=== PATIENT | male | born 1950 | race Caucasian/White ===

== ENCOUNTER 2018-08-02 07:58 | Day surgery (SDC) | payer OTHER ==
[~2018-08-02] VITALS: Ht 177.8 cm; Wt 101.5 kg
[2018-08-02] MEDS ORDERED: ASPI81CH PO (08:27)
[2018-08-02] MEDS ORDERED: CETI5 PO (08:27)
[2018-08-02] MEDS ORDERED: IBUP400 PO (08:28)
[2018-08-02] MEDS ORDERED: IRON150C PO (08:28)
--- NOTE | 2018-08-02 08:54 | NUR ---
08/02/18 0875 Vesta Matthews EDUCATED PT AND , ANSWERED QUESTIONS. TAUGHT PT INCENTIVE SPIROMETER, PT DEMONSTRATED TWICE. BED IN LOWEST POSITION, CALL LIGHT IN REACH.
--- NOTE | 2018-08-02 13:13 | NUR ---
08/02/18 1313 Reddy Hernandez PATIENT INTO SDU RECLINERELLY, TOLERATING PO FLUIDS WELL, DENIES PAIN AT THIS TIME. PATIENT REPORTS NAUSEA, ORSC.SNEHA GAVE IV MEDICATION FOR NAUSEA PER MD ORDERS, SEE DOSAGE AND TIME IN VITALS. NAUSEA HAS DECREASED PER PATIENT. GAVE REPORT TO ORSC.C AND SHE TOOK OVER PATIENT CARE @ [id number]
== END 2018-08-02 13:37 | disposition home or self-care (01) ==
LOC: ORSCSDS 07:58
PROVIDERS: Orthopaedic Surgery
PROC: 0LS24ZZ Reposition Left Shoulder Tendon, Percutaneous Endoscopic Approach (ICD-10-PCS; principal; 2018-08-02 09:30)
PROC: 0RNK4ZZ Release Left Shoulder Joint, Percutaneous Endoscopic Approach (ICD-10-PCS; principal; 2018-08-02 09:30)
PROC: 0LQ24ZZ Repair Left Shoulder Tendon, Percutaneous Endoscopic Approach (ICD-10-PCS; principal; 2018-08-02 09:30)
DX: M75.122 Complete rotator cuff tear or rupture of left shoulder, not specified as traumatic (principal); M75.22 Bicipital tendinitis, left shoulder; G47.33 Obstructive sleep apnea (adult) (pediatric); Z79.899 Other long term (current) drug therapy; Z79.82 Long term (current) use of aspirin
CPT/HCPCS: C1713; J0171; J0690; J1100; J1885; J2250; J2405; J3010